=== PATIENT | female | born 1995 | race Caucasian/White ===

== ENCOUNTER 2022-12-05 07:33 | Outpatient (REF) | payer OTHER, SELFPAY ==
--- NOTE | ~2022-12-05 | XR_ITS ---
EXAMINATION: XR KNEE, LEFT CLINICAL INFORMATION: Pain. COMPARISON: None available. TECHNIQUE: Three views of the left knee. FINDINGS: No acute fractures or subluxation. Joint spaces are maintained. No osseous erosions or abnormal soft tissue calcifications. Nonspecific soft tissue thickening along the anterior compartment of the knee with a trace joint effusion. XR/XR knee LT 3V IMPRESSION: 1. No acute fractures or subluxation. 2. Nonspecific soft tissue thickening along the anterior compartment of the knee with a trace joint effusion.
== END 2022-12-05 07:34 | disposition home or self-care (01) ==
LOC: HO.HOSX 07:33
PROVIDERS: Visit Provider Orthopaedic Surgery
DX: M25.562 Pain in left knee (principal); S83.242D Other tear of medial meniscus, current injury, left knee, subsequent encounter; X58.XXXD Exposure to other specified factors, subsequent encounter
CPT/HCPCS: 73562

== ENCOUNTER 2022-12-05 09:36 | Outpatient (AMB) | payer OTHER, SELFPAY ==
--- NOTE | 2022-12-05 09:38 | A.OFFVIS_ITS ---
Intake Vital Signs 12/05/22 09:57 Height 5 ft 7 in Weight 106 lb BMI 16.6 Intake Visit Reasons: New Pt - left knee pain Intake Note: Dani is a 27 year old female who presents today as a new patient for a evaluation for her left knee pain and giving way. The patient did injure her left knee several years ago. She subsequently underwent left knee arthroscopic surgery. She got fairly good relief from that surgery initially. She re- injured her left knee approximately 1 year ago. She twisted her knee while playing tennis. Since that time her symptoms have gotten worse in spite of continued non operative treatments. She has had injections in the past which gave her minimal relief. She has also done physical therapy for 12 weeks over the last 6 months which aggravated her pain. She has tried Tylenol and anti- inflammatory medicines which gave her minimal relief. Most of the pain is along the medial aspect of her knee. She states that her knee will give out several times per day. She has tried wearing a knee brace which gave her minimal relief. Allergies No Known Allergies Allergy (Verified 12/05/22 09:56) Medication List - Last Reconciled 12/06/22 by Sharan Mayorga MD No Known Home Meds [facility] Social History (Updated 12/05/22 @ 09:57 by Nicole Howard) Alcohol intake: never Patient Tobacco Use Status: Never used Tobacco Current occupational status: employed Physical Exam Vital Signs: BMI result Body Mass Index 16.6 Const Other: Well-nourished well-developed very friendly female awake alert and oriented x3 in no acute distress Extrem Other: Bilateral lower extremity examination shows good capillary refill, no skin lesions noted, normal sensation light touch Left knee examination shows a mild effusion, minimal crepitus with range of motion, tenderness along her medial joint line, positive Jaquan's test, no instability Results Reviewed Results Reviewed: X-rays of the patient's left knee show minimal diffuse joint space narrowing, no acute bony abnormalities Assessment & Plan Assessment & Plan (1) Left knee pain: Code(s): M25.562 - Pain in left knee Plan: Ms. Beth presents with progressively worsening left knee pain and mechanical symptoms most likely due to a recurrent medial meniscus tear. Thus, I will send the patient for an MRI of her left knee for further evaluation. I will contact her by phone once the MRI results are available. She will continue with her activity modifications in the meantime. She will contact me prior to that time should her symptoms worsen in any way. I spent 22 minutes in reviewing the patient's records and imaging studies, seeing the patient and documenting in the medical record. (2) Tear of medial meniscus of left knee: Code(s): S83.242A - Other tear of medial meniscus, current injury, left knee, initial encounter Orders: Orders MR knee LT wo con Today S83.242A - Other tear of medial meniscus, current injury, left knee, initial encounter Coding Level of Care Code Est Pt Level 2 (41313) Diagnoses Left knee pain M25.562 Tear of medial meniscus of left knee S83.242A
[2022-12-05 09:57] VITALS: BMI 16.6
== END 2022-12-05 10:19 | disposition home or self-care (01) ==
PROVIDERS: Visit Provider Orthopaedic Surgery
DX: M25.562 Pain in left knee (principal); S83.242A Other tear of medial meniscus, current injury, left knee, initial encounter
CPT/HCPCS: 99212